=== PATIENT | female | born 1995 | race Caucasian/White ===

== ENCOUNTER 2019-06-20 20:04 | Emergency (ER) | payer BC ==
[2019-06-20 20:19] VITALS: BP 142/82
--- NOTE | 2019-06-20 20:33 | UC ---
Laceration HPI - HPI Summary HPI Summary: 23 year old female with no PMH no medications presents after cutting thumb, index finger on right hand on can of coconut milk this evening. no numbness, tingling. full strength, ROM. last tetanus 2 years ago. no prior sutures in past. 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 - History Of Current Complaint Chief Complaint: UCLaceration Stated Complaint: FINGER LACS Time Seen by Provider: 06/20/19 20:30 Hx Obtained From: Patient, Family/Pit Manager - partner Hx Last Menstrual Period: irregular Laceration Location: Finger - right humb, index Mechanism Of Injury: Sharp Trauma Onset/Duration: Sudden Onset, Lasting Hours Severity: Moderate Pain Intensity: 4 Pain Scale Used: 0-10 Numeric - Allergies/Home Medications Allergies/Adverse Reactions: Allergies Allergy/AdvReac Type Severity Reaction Status Date / Time Penicillins Allergy Intermediate Rash Verified 06/20/19 20:23 Sulfa (Sulfonamide Allergy Intermediate Rash Verified 06/20/19 20:23 Antibiotics) Home Medications: Home Medications Control 28 mg PO DAILY 06/20/19 [History Confirmed 06/20/19] Cetirizine HCl [Zyrtec] 10 mg PO DAILY WITH MEAL 06/20/19 [History Confirmed ] Levocetirizine Dihydrochloride [Xyzal Allergy 24Hr] 5 mg PO DAILY WITH MEAL [History Confirmed 06/20/19] PMH/Surg Hx/FS Hx/Imm Hx Previously Healthy: Yes - Surgical History Surgical History: Yes Surgery Procedure, Year, and Place: breast reduction - Family History Known Family History: Positive: Non-Contributory - Social History Occupation: Employed Full-time Alcohol Use: Rare Substance Use Type: None Smoking Status (MU): Never Smoked Tobacco Review of Systems All Other Systems Reviewed And Are Negative: Yes Constitutional: Positive: Negative Musculoskeletal: Positive: Arthralgia, Edema, Myalgia. Negative: Decreased ROM Is Patient Immunocompromised?: No Physical Exam Triage Information Reviewed: Yes Appearance: Well-Appearing, No Pain Distress, Well-Nourished Vital Signs: Initial Vital Signs Temp 98.7 F 06/20/19 20:15 Pulse 83 06/20/19 20:15 Resp 18 06/20/19 20:15 BP 142/82 06/20/19 20:15 Pulse Ox 100 06/20/19 20:15 Vital Signs Reviewed: Yes Eyes: Positive: Conjunctiva Clear ENT: Positive: Hearing grossly normal Musculoskeletal Exam: Normal Musculoskeletal: Positive: Strength Intact, ROM Intact, No Edema Neurological Exam: Normal Neurological: Positive: Alert Psychological Exam: Normal Skin: Positive: Other - right thumb- tip of DIP with 1 cm full thickness laceration extending to middle of nailbed. + bleeding, controlled with compression. non-tender to DIP, PIP, full ROM, strength intact. no edema. Right index- Laceration ~ 1cm to dorsal DIP with full ROM, + bleeding controlled with pressure dressing, superifical. non-tender DIP, PIP, full strength. Laceration Repair - Laceration Repair 1 Description: Linear Laceration Size After Repair: Length (cm) - 1, Width (mm) - 3, Depth (mm) - 3 Modified For Repair: No Type Injection: Local Anesthesia Used: 1.0% Lido Cleansing Completed Via Routine Prep: Yes Irrigation With Pressure Irrigation Device: No Closure Material: Sutures Closure Method: Single Layer - 3 Suture Of: Skin Suture Type: Prolene 2 Description: Linear : No Repair Necessary Laceration Size After Repair: Length (cm) - 1, Width (mm) - 1, Depth (mm) - 1 Modified For Repair: No Closure Material: Skin Adhesive Laceration Course/Dx - Course/Dx Course Of Treatment: 2 lacerations right htumb, index finger. Under semi-sterile conditions, right thumb repaired after cleansed and anes with 1% lidocaine, 1cc, 2 non-absorbable sutures placed without complications. right index- cleansed, skin adhesive without complications. Dressed. - Diagnosis Provider Diagnosis: Laceration of finger Discharge ED - Sign-Out/Discharge Documenting (check all that apply): Patient Departure All imaging exams completed and their final reports reviewed: No Studies - Discharge Plan Condition: Good Disposition: HOME Patient Education Materials: Care For Your Stitches (ED) Referrals: No Primary Care Phys,NOPCP [Primary Care Provider] - [facility] [Outside] Additional Instructions: laceration repair - Sutures, 2, to be removed within 5-7 days, can return here for removal - COntinue to monitor area for redness, drainage, pain with moving fingers. Return for possible infection if occurs - Keep original dressing on x 24 hours, or change if become wet/ dirty. Change if soiled at any time or change twice daily at least - Billing Disposition and Condition Condition: GOOD Disposition: Home - Attestation Statements Provider Attestation: Per institutional requirements, I have reviewed the chart, however, I was not consulted specifically or made aware of this patient by the midlevel provider. I did not personally evaluate, interact with , or disposition this patient.
[2019-06-20] MEDS ORDERED: Lidocaine 1% MPF ** 5 ML VIAL INJ ONE (20:38)
== END 2019-06-20 21:29 | disposition home or self-care (01) ==
LOC: UCEAST 20:04
DX: S61.011A Laceration without foreign body of right thumb without damage to nail, initial encounter (principal); S61.210A Laceration without foreign body of right index finger without damage to nail, initial encounter; Z88.0 Allergy status to penicillin; Z88.2 Allergy status to sulfonamides; W26.8XXA Contact with other sharp object(s), not elsewhere classified, initial encounter; Y92.9 Unspecified place or not applicable
CPT/HCPCS: 12001; 99201; G0463